=== PATIENT | male | born 1990 | race Caucasian/White ===

== ENCOUNTER 2017-11-26 06:55 | Emergency (ER) | payer MEDICAID ==
[2017-11-26] MEDS: ACETAMINOPHEN 500 MG TAB PO (07:46)
== END 2017-11-26 08:09 | disposition home or self-care (01) ==
LOC: FTE 06:55
DX: J02.9 Acute pharyngitis, unspecified (principal); F17.210 Nicotine dependence, cigarettes, uncomplicated
CPT/HCPCS: 99283; Z7502

== ENCOUNTER 2018-03-30 07:12 | Emergency (ER) | payer MEDICAID ==
[2018-03-30] MEDS: IBUPROFEN 800 MG TAB PO (08:21)
== END 2018-03-30 09:14 | disposition home or self-care (01) ==
LOC: FTE 07:12
DX: M25.562 Pain in left knee (principal); F17.210 Nicotine dependence, cigarettes, uncomplicated
CPT/HCPCS: 73562; 99283-25